=== PATIENT | female | born 2000 | race Caucasian/White ===

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

== ENCOUNTER 2022-03-05 14:23 | Emergency (ER) | payer OTHER ==
[2022-03-05] MEDS ORDERED: MEDROL DOSEPAK 24 MG PO (17:00)
[2022-03-05] MEDS ORDERED: PROAIR HFA8.5 GM INH (17:00)
== END 2022-03-05 17:15 | disposition home or self-care (01) ==
LOC: ER1 14:23
DX: R06.02 Shortness of breath (principal); R53.1 Weakness; F17.210 Nicotine dependence, cigarettes, uncomplicated
CPT/HCPCS: 71045; 99283